=== PATIENT | female | born 1990 | race Asian ===

== ENCOUNTER 2016-11-17 17:38 | Emergency (ER) | payer SELFPAY ==
--- NOTE | 2016-11-17 22:47 | Cat Scan Report ---
FINAL REPORT PROCEDURE: CT ORBIT/EAR/FOSSA WO CON TECHNIQUE: Computerized axial tomography of the orbits was performed without contrast material. HISTORY: Orbital edema and painful EOMI COMPARISON: No prior studies are available for comparison. FINDINGS: Paranasal sinuses appear clear. Middle ears and mastoid air cells appear clear. No nasal bone fracture is seen. There is abnormal increased soft tissue density surrounding the right globe and along the right optic nerve. There is right-sided proptosis. Right lacrimal gland appears larger than the left lacrimal gland. No orbital fracture or bony destruction is seen. Mild intraconal hazy edema is seen. No fluid collections are seen. The extraocular muscles appear normal in size bilaterally. No abnormalities are seen in the left orbit. IMPRESSION: Abnormal soft tissue density surrounding the right globe and anterior aspect of the right optic nerve is present without involvement of the extraocular muscles. 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 Infectious etiology could possibly cause the appearance, also. No involvement of the left orbit is seen.
--- NOTE | 2016-11-17 22:58 | Emergency Department Report ---
Chief Complaint: Eye Problems Stated Complaint: KETURAH RT EYE Time Seen by Provider: 11/17/16 21:45 - HPI History of Present Illness: 26-year-old female presents today with a right pink eye with pain, swelling and change in vision. Patient states that she's had the pink eye for 5 days and was seen at [facility]. She was diagnosed with acute bacterial conjunctivitis and was prescribed tobramycin dexamethasone ophthalmic suspension. Patient states that the symptoms were improving but worsened 2 days ago when her eyes swelled up. Denies fever, chills, chest pain, shortness of breath, abdominal pain. Tried ibuprofen with some relief. Denies contact wear, positive for eyeglasses. - Exam Vital Signs: Vital Signs 11/17/16 11/17/16 17:56 22:18 Temperature 98.1 F 98.4 F Pulse Rate 97 H 86 Respiratory 18 18 Rate Blood Pressure 152/90 Blood Pressure 148/90 [Right] O2 Sat by Pulse 98 98 Oximetry MSE screening note: Focused history and physical exam performed. Due to findings the following was ordered: ED Disposition for MSE Condition: Stable
--- NOTE | 2016-11-17 23:05 | Emergency Department Report ---
HPI - General Chief Complaint: Eye Problems Time Seen by Provider: 11/17/16 21:45 - HPI HPI: 26-year-old female presents today with a right pink eye with pain, swelling and change in vision. Patient states that she's had the pink eye for 5 days and was seen at [facility]. She was diagnosed with acute bacterial conjunctivitis and was prescribed tobramycin dexamethasone ophthalmic suspension. Patient states that the symptoms were improving but worsened 2 days ago when her eyes swelled up. Denies fever, chills, chest pain, shortness of breath, abdominal pain. Tried ibuprofen with some relief. Denies contact wear, positive for eyeglasses. ED Past Medical Hx - Past Medical History Previous Medical History?: Yes Hx Congestive Heart Failure: No Hx Diabetes: No Hx Asthma: No Hx COPD: No Additional medical history: right eye irritation - Surgical History Past Surgical History?: Yes Additional Surgical History: x 1, Nexplinon removal - Social History Smoking Status: Never Smoker Substance Use Type: Alcohol, Non Opiate Pain, Prescribed - Medications Home Medications: Home Medications Medication Instructions Recorded Confirmed Last Taken Type Ibuprofen [Motrin] 600 mg PO Q6H PRN #30 tablet 08/14/13 11/17/16 Rx Tobramycin/Dexameth 0.3-0.1% 0 drops OP 11/17/16 11/16/16 History [Tobradex] ED Review of Systems ROS: Stated complaint: PINKEYE RT EYE Other details as noted in HPI Constitutional: denies: chills, fever, malaise Eyes: eye pain, eye discharge, vision change ENT: denies: ear pain, throat pain, congestion Respiratory: denies: cough, shortness of breath, wheezing Cardiovascular: denies: chest pain, palpitations Endocrine: no symptoms reported Gastrointestinal: nausea. denies: abdominal pain, vomiting Neurological: denies: headache, weakness Physical Exam - Physical Exam Vital Signs: Vital Signs 11/17/16 11/17/16 17:56 22:18 Temperature 98.1 F 98.4 F Pulse Rate 97 H 86 Respiratory 18 18 Rate Blood Pressure 152/90 Blood Pressure 148/90 [Right] O2 Sat by Pulse 98 98 Oximetry Physical Exam: GENERAL: The patient is well-developed and well-nourished. Patient is in NAD. HEAD: Normocephalic. Atraumatic. EYES: PERRL. Painful extraocular movement in all directions of the right eye. Positive for right eye proptosis. Positive for conjunctival injection of right eye. No drainage noted. EARS: External auditory canals and tympanic membranes clear; hearing grossly intact. NOSE: Normal nasal mucosa with no nasal discharge. THROAT: No erythema, swelling or exudates. NECK: Supple, nontender, without lymphadenopathy. CHEST/LUNGS: Clear to auscultation throughout. HEART/CARDIOVASCULAR: Regular rate and rhythm. No murmurs, rubs or gallops. ABDOMEN: Abdomen is soft, nontender. Bowel sounds normoactive. No guarding or rebound tenderness. EXTREMITIES: Peripheral pulses intact. Capillary refill less than 2 seconds. VISUAL ACUITY Right: 20/50 Left: 20/20 Bilateral: 20/15 ED Course Vital Signs 11/17/16 11/17/16 17:56 22:18 Temperature 98.1 F 98.4 F Pulse Rate 97 H 86 Respiratory 18 18 Rate Blood Pressure 152/90 Blood Pressure 148/90 [Right] O2 Sat by Pulse 98 98 Oximetry - Reevaluation(s) Reevaluation #1: 11/18/16 23:[address] Sow. CBC, BMP, blood cultures were ordered. Patient was started on vancomycin and ceftriaxone empirically. Amniotomy ophthalmology will be contacted post lab results. Reevaluation #2: 11/18/16 01:[address] Rashi Reid, [facility]. Dr. Reid recommended ER to ER transfer to [facility]. Dr. Roman from [facility] ED accepted the patient transfer. Address: [address] [place] [address]. ED Medical Decision Making - Lab Data Result diagrams: 11/17/16 23:55 11/17/16 23:55 Vital Signs 11/17/16 11/17/16 17:56 22:18 Temperature 98.1 F 98.4 F Pulse Rate 97 H 86 Respiratory 18 18 Rate Blood Pressure 152/90 Blood Pressure 148/90 [Right] O2 Sat by Pulse 98 98 Oximetry Lab Results 11/17/16 11/17/16 Range/Units 23:55 23:55 WBC 8.9 (4.5-11.0) K/mm3 RBC 4.44 (3.65-5.03) M/mm3 Hgb 11.9 (10.1-14.3) gm/dl Hct 37.5 (30.3-42.9) % MCV 85 (79-97) fl MCH 27 L (28-32) pg MCHC 32 (30-34) % RDW 13.5 (13.2-15.2) % Plt Count 309 (140-440) K/mm3 Lymph % (Auto) 37.6 H (13.4-35.0) % [place] % (Auto) 5.5 (0.0-7.3) % Eos % (Auto) 2.2 (0.0-4.3) % Baso % (Auto) 0.4 (0.0-1.8) % Lymph # 3.3 (1.2-5.4) K/mm3 [place] # 0.5 (0.0-0.8) K/mm3 Eos # 0.2 (0.0-0.4) K/mm3 Baso # 0.0 (0.0-0.1) K/mm3 Seg Neutrophils % 54.3 (40.0-70.0) % Seg Neutrophils # 4.8 (1.8-7.7) K/mm3 Sodium 137 (137-145) mmol/L Potassium 4.0 (3.6-5.0) mmol/L Chloride 100.0 (98-107) mmol/L Carbon Dioxide 27 (22-30) mmol/L Anion Gap 14 mmol/L BUN 15 (7-17) mg/dL Creatinine 0.7 (0.7-1.2) mg/dL Estimated GFR > 60 ml/min BUN/Creatinine Ratio 21.42 % Glucose 102 H (65-100) mg/dL Calcium 9.1 (8.4-10.2) mg/dL - Radiology Data Radiology results: report reviewed PROCEDURE: CT ORBIT/EAR/FOSSA WO CON TECHNIQUE: Computerized axial tomography of the orbits was performed without contrast material. HISTORY: Orbital edema and painful EOMI COMPARISON: No prior studies are available for comparison. FINDINGS: Paranasal sinuses appear clear. Middle ears and mastoid air cells appear clear. No nasal bone fracture is seen. There is abnormal increased soft tissue density surrounding the right globe and along the right optic nerve. There is right-sided proptosis. Right lacrimal gland appears larger than the left lacrimal gland. No orbital fracture or bony destruction is seen. Mild intraconal hazy edema is seen. No fluid collections are seen. The extraocular muscles appear normal in size bilaterally. No abnormalities are seen in the left orbit. IMPRESSION: Abnormal soft tissue density surrounding the right globe and anterior aspect of the right optic nerve is present without involvement of the extraocular muscles. 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 Infectious etiology could possibly cause the appearance, also. No involvement of the left orbit is seen. - Medical Decision Making 26-year-old female presents today with right periorbital edema, conjunctival injection with drainage. Patient was diagnosed with acute bacterial conjunctivitis 5 days ago and has been taking antibiotics as prescribed. Patient states her symptoms worsened [address] and lab work were ordered. Her lab work is within normal limits. CT reveals abnormal soft tissue density surrounding the right globe and anterior aspect of the right optic nerve is present without involvement of the extraocular muscles. 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 Infectious etiology could possibly cause the appearance, also. No involvement of the left orbit is seen. Consulted with Dr. Sow, consult with [facility] was recommended and patient was started on vancomycin and ceftriaxone empirically. Spoke with Dr. Reid ([facility]), who recommended ER to ER transfer. Dr. Roman from [facility] accepted patient transfer. Patient is awaiting transport at this time. Critical care attestation.: If time is entered above; I have spent that time in minutes in the direct care of this critically ill patient, excluding procedure time. ED Disposition Clinical Impression: Periorbital cellulitis Qualifiers: Laterality: right Qualified Code(s): L03.213 - Periorbital cellulitis Disposition: DC/TX ANOTHER TYPE HEALTHCARE Is pt being admited?: No Does the pt Need Aspirin: No Condition: Stable
[2016-11-17] MEDS ORDERED: VANCOMYCIN VIAL IV ONE (23:41)
[2016-11-17] MEDS ORDERED: XYLOCAINE 1% MPF 5 mL INFILTRATI ONE (23:41)
[2016-11-17] MEDS ORDERED: VANCOMYCIN PHARMACY TO DOSE IV SCH (23:45)
[2016-11-17] MEDS ORDERED: ROCEPHIN/NS 2 GM/100 ML 100 ML IV SCH (23:45)
[2016-11-17] MEDS ORDERED: VANCOMYCIN VIAL 1,750 MG in NACL 0.9% 500 ML 500 ML IV ONE (23:45)
[2016-11-18 00:07] LABS: Basophils % (Auto) 0.4 % (0.0-1.8); Eosinophils % (Auto) 2.2 % (0.0-4.3); Hematocrit 37.5 % (30.3-42.9); Hemoglobin 11.9 gm/dl (10.1-14.3); Mean Corpuscular HGB Conc 32 % (30-34); Mean Corpuscular Hemoglobin 27 pg (28-32); Mean Corpuscular Volume 85 fl (79-97); Platelet Count 309 K/mm3 (140-440); Red Blood Count 4.44 M/mm3 (3.65-5.03); Red Cell Distribution Width 13.5 % (13.2-15.2); White Blood Count 8.9 K/mm3 (4.5-11.0)
[2016-11-18 00:19] LABS: BUN/Creatinine Ratio 21.42; Blood Urea Nitrogen 15 mg/dL (7-17); Calcium 9.1 mg/dL (8.4-10.2); Carbon Dioxide 27 mmol/L (22-30); Glucose 102 mg/dL (65-100); Sodium 137 mmol/L (137-145)
[2016-11-18 00:31] LABS: Anion Gap 14 mmol/L
[2016-11-18 02:00] VITALS: BP 128/87
== END 2016-11-18 02:15 | disposition other institution (70) ==
LOC: ED 17:38
DX: L03.213 Periorbital cellulitis (principal); R11.0 Nausea
CPT/HCPCS: 36415; 70480; 80048; 85025; 87040; 96365; 96367; 96376; 99285; J0696; J3370; J7040

== ENCOUNTER 2019-02-18 15:14 | Emergency (ER) | payer MEDICAID, OTHER ==
[2019-02-18 15:21] VITALS: BP 130/81
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
== END 2019-02-18 16:40 | disposition home or self-care (01) ==
LOC: ED 15:14
DX: S39.012A Strain of muscle, fascia and tendon of lower back, initial encounter (principal); V49.9XXA Car occupant (driver) (passenger) injured in unspecified traffic accident, initial encounter; Y93.89 Activity, other specified; Y92.410 Unspecified street and highway as the place of occurrence of the external cause; Y99.8 Other external cause status
CPT/HCPCS: 99282

== ENCOUNTER 2022-02-03 13:56 | Emergency (ER) | payer SELFPAY ==
[2022-02-03 16:15] LABS: Hematocrit 37.1 % (30.3-42.9); Hemoglobin 11.7 gm/dl (10.1-14.3); Mean Corpuscular HGB Conc 31 % (30-34); Mean Corpuscular Volume 85 fl (79-97); Platelet Count 279 K/mm3 (140-440); Red Blood Count 4.37 M/mm3 (3.65-5.03); Red Cell Distribution Width 13.8 % (13.2-15.2)
[2022-02-03 16:22] LABS: Alanine Aminotransferase 19 units/L (7-56); Albumin 3.9 g/dL (3.9-5); Blood Urea Nitrogen 12 mg/dL (7-17); Calcium 9.8 mg/dL (8.4-10.2); Hemolysis Index 3
[2022-02-03 16:30] LABS: BUN/Creatinine Ratio 17
[2022-02-03 16:42] LABS: Bilirubin,Urine NEG (Negative); Blood,Urine NEG (Negative); Color,Urine Amber (Yellow); Mucus,Urine 3+ /HPF
[2022-02-03 16:51] LABS: Protein,Urine >500 mg/dL (Negative)
[2022-02-03 17:24] LABS: Band Neutrophils # (Manual) 0.5 K/mm3; Basophils % (Manual) 0 % (0.0-1.8); Total Cells Counted 100
[2022-02-03 17:25] LABS: Anisocytosis 1+
[2022-02-03 17:26] LABS: Platelet Estimate Consistent w Auto; Toxic Granulation 1+; Toxic Vacuolation 1+
[2022-02-03 20:00] VITALS: BP 131/87
[2022-02-03] MEDS ORDERED: MORPHINE 4 MG/1 ML INJ IV STA (20:39)
[2022-02-03] MEDS ORDERED: SODIUM CHLORIDE 0.9% 1000 ML 1,000 ML IV ONE (20:39)
[2022-02-03] MEDS ORDERED: ONDANSETRON 4 MG/2 ML INJ IV STA (20:39)
[2022-02-03] MEDS ORDERED: cefTRIAXone/NS 1 GM/50 ML 1 GM/50 ML BAG IV ONE (21:53)
--- NOTE | 2022-02-03 22:41 | Cat Scan Report ---
CT ABDOMEN AND PELVIS WITH CONTRAST INDICATION / CLINICAL INFORMATION: Lower ABD Pain. TECHNIQUE: Axial CT images were obtained through the abdomen and pelvis after 100 cc Omnipaque [address] scans at this location are performed using CT dose reduction for ALARA by means of automated exposure control. COMPARISON: None available. FINDINGS: LOWER CHEST: No significant abnormality of the imaged chest. LIVER: No significant abnormality. GALLBLADDER: Layering sludge within the gallbladder. BILE DUCTS: No significant abnormality. SPLEEN: No significant abnormality. PANCREAS: No significant abnormality. ADRENALS: No significant abnormality. RIGHT KIDNEY / URETER: No significant abnormality. LEFT KIDNEY / URETER: No significant abnormality. STOMACH / DUODENUM / SMALL BOWEL: No significant abnormality. COLON: No significant abnormality. APPENDIX: No significant abnormality. PERITONEUM: Small to moderate amount of free fluid within the right pelvis. LYMPH NODES: No significant adenopathy. AORTA / ARTERIES: No significant abnormality. IVC / VEINS: No significant abnormality. URINARY BLADDER: Mild uniform wall thickening of the urinary bladder. REPRODUCTIVE ORGANS: The right ovary and adnexa demonstrate increased inflammatory stranding with hyp eremic flow and increased opacification of the right gonadal vein present. Small right adnexal fluid collection present. The uterus demonstrates a peripherally calcified uterine fibroid measuring up to 2.8 cm. Left ovary i s unremarkable. ADDITIONAL ABDOMINAL/PELVIC FINDINGS: None. SKELETAL SYSTEM: No significant abnormality. IMPRESSION: 1. Fluid collection in region of right adnexa right ovary with more organized rounded focus of fluid that may represent ovarian or adnexal cyst. A moderate inflammatory process is suggested. Small tubo- ovarian abscess not excluded. Additional differential considerations for the appearance could include salpingitis, possibly ruptured hemorrhagic cyst. Signer Name: Siddharth Ribera II, MD Signed: 02/03/2022 10:37 PM Workstation Name: [id number]
--- NOTE | 2022-02-04 00:45 | Ultrasound Report ---
ULTRASOUND PELVIS INDICATION / CLINICAL INFORMATION: PAIN. TECHNIQUE: Transabdominal. Duplex Color Doppler used: Yes. COMPARISON: CT abdomen and pelvis 02/03/2022 FINDINGS: UTERUS: Uterus measures 9.3 x 3.8 x 4.3 cm. No focal abnormality of uterine echotexture is demonstrat ed. An atrial stripe measures up to 6 mm. Calcified uterine fibroid as demonstrated on recent CT. RIGHT ADNEXA: The right ovary measures 2.7 x 2.0 x 2.4 cm. The cystic region/focal fluid collection d emonstrated on recent CT not well visualized on ultrasound.. Color flow is present within the right o vary. Spectral Doppler evaluation not performed. The free fluid demonstrated on CT is not well demons trated on ultrasound. LEFT ADNEXA: Left ovary is not identified. URINARY BLADDER: No significant abnormality. ADDITIONAL FINDINGS: None. IMPRESSION: 1. The imaged right ovary is grossly normal on ultrasound. The small cystic region/focal fluid collec tion as well as suggested adjacent paraovarian fluid demonstrated on CT not well visualized on ultras ound. Signer Name: Siddharth Ribera II, MD Signed: 02/04/2022 12:40 AM Workstation Name: [id number]
[2022-02-04] MEDS ORDERED: KETOROLAC 30 MG/1 ML INJ IM ONE (02:24)
--- NOTE | 2022-02-04 03:57 | Emergency Department Report ---
ED Abdominal Pain HPI - General Chief Complaint: Abdominal Pain Stated Complaint: ABD PAIN Time Seen by Provider: 02/03/22 20:28 Source: patient Mode of arrival: Ambulatory Limitations: No Limitations - History of Present Illness Initial Comments: Patient is a A1 31-year-old -[place] female who is 3 months presents to the ED with complaint of acute onset persistent diffuse low abdominal pain with nausea and vomiting, body aches and pains, headache, chills and lack of appetite for the last 1 week. Patient states that the pain is worse also with sexual intercourse. Patient denies dizziness, syncope, chest pain, shortness of breath, diarrhea, dysuria, urinary frequency and urgency, vaginal discharge, low back pain, headache or sore throat. MD Complaint: abdominal pain (Diffuse low abdominal pain), other (Nausea, body aches and pains) -: Sudden, week(s) (1) Location: LLQ, RLQ, suprapubic Radiation: LLQ, RLQ, suprapubic Migration to: no migration Severity scale (0 -10): 8 Quality: cramping, aching, sharp Consistency: constant Improves With: nothing Worsens With: bowel movement, movement, other (Sexual intercourse) Context: recent surgery/procedure ( delivery 3 months ago) Associated Symptoms: denies other symptoms, nausea, vomiting, anorexia. denies: diarrhea, fever, chills, constipation, dysuria, hematemesis, hematochezia, melena, hematuria, syncope - Related Data Home Medications Medication Instructions Recorded Confirmed Last Taken Tobramycin/Dexameth 0.3-0.1% 0 drops OP 11/17/16 11/16/16 [Tobradex] Previous Rx's Medication Instructions Recorded Last Taken Type Ibuprofen [Motrin] 600 mg PO Q6H PRN #30 tablet 08/14/13 11/17/16 Rx Cyclobenzaprine [Flexeril] 10 mg PO TID PRN #20 tablet 02/18/19 Unknown Rx Ibuprofen [Ibuprofen 800] 800 mg PO QID #10 tablet 02/18/19 Unknown Rx Doxycycline Hyclate 100 mg PO Q12H #28 cap 02/04/22 Unknown Rx Fluconazole [Diflucan TAB] 200 mg PO QDAY #2 tablet 02/04/22 Unknown Rx Ibuprofen [Motrin] 800 mg PO Q8HR PRN #30 tablet 02/04/22 Unknown Rx Ondansetron [Zofran Odt] 4 mg PO Q6HR PRN #20 tab.rapdis 02/04/22 Unknown Rx metroNIDAZOLE [Flagyl] 500 mg PO Q12HR #20 tab 02/04/22 Unknown Rx traMADoL [Ultram] 50 mg PO Q6HR PRN #10 tablet 02/04/22 Unknown Rx Allergies Allergy/AdvReac Type Severity Reaction Status Date / Time No Known Allergies Allergy Verified 02/18/19 15:16 ED Review of Systems ROS: Stated complaint: ABD PAIN Other details as noted in HPI Constitutional: chills, fever, malaise Eyes: denies: eye pain, eye discharge, vision change ENT: denies: ear pain, throat pain Respiratory: denies: cough, shortness of breath, wheezing Cardiovascular: denies: chest pain, palpitations Endocrine: no symptoms reported Gastrointestinal: abdominal pain (Diffuse low abdominal pain), nausea, vomiting. denies: diarrhea Genitourinary: denies: urgency, dysuria, frequency, hematuria, discharge, abnormal menses, dyspareunia Musculoskeletal: arthralgia, myalgia. denies: back pain, joint swelling Skin: denies: rash, lesions Neurological: headache. denies: weakness, paresthesias Psychiatric: denies: anxiety, depression Hematological/Lymphatic: denies: easy bleeding, easy bruising ED Past Medical Hx - Past Medical History Hx Congestive Heart Failure: No Hx Diabetes: No Hx Asthma: No Hx COPD: No Additional medical history: right eye irritation - Surgical History Past Surgical History?: Yes Additional Surgical History: x 3, Nexplinon removal - Social History Smoking Status: Never Smoker Substance Use Type: None - Medications Home Medications: Home Medications Medication Instructions Recorded Confirmed Last Taken Type Ibuprofen [Motrin] 600 mg PO Q6H PRN #30 tablet 08/14/13 11/17/16 Rx Tobramycin/Dexameth 0.3-0.1% 0 drops OP 11/17/16 11/16/16 History [Tobradex] Cyclobenzaprine [Flexeril] 10 mg PO TID PRN #20 tablet 02/18/19 Unknown Rx Ibuprofen [Ibuprofen 800] 800 mg PO QID #10 tablet 02/18/19 Unknown Rx Doxycycline Hyclate 100 mg PO Q12H #28 cap 02/04/22 Unknown Rx Fluconazole [Diflucan TAB] 200 mg PO QDAY #2 tablet 02/04/22 Unknown Rx Ibuprofen [Motrin] 800 mg PO Q8HR PRN #30 tablet 02/04/22 Unknown Rx Ondansetron [Zofran Odt] 4 mg PO Q6HR PRN #20 tab.rapdis 02/04/22 Unknown Rx metroNIDAZOLE [Flagyl] 500 mg PO Q12HR #20 tab 02/04/22 Unknown Rx traMADoL [Ultram] 50 mg PO Q6HR PRN #10 tablet 02/04/22 Unknown Rx ED Physical Exam - General Limitations: No Limitations General appearance: alert, in no apparent distress - Head Head exam: Present: atraumatic, normocephalic, normal inspection - Eye Eye exam: Present: normal appearance, PERRL, EOMI Pupils: Present: normal accommodation - ENT ENT exam: Present: normal exam, normal orophraynx, mucous membranes moist, TM's normal bilaterally, normal external ear exam - Neck Neck exam: Present: normal inspection, full ROM. Absent: tenderness - Respiratory Respiratory exam: Present: normal lung sounds bilaterally. Absent: respiratory distress, wheezes, rales, chest wall tenderness, accessory muscle use, decreased breath sounds - Cardiovascular Cardiovascular Exam: Present: normal rhythm, tachycardia, normal heart sounds. Absent: systolic murmur, diastolic murmur, rubs, gallop - GI/Abdominal GI/Abdominal exam: Present: soft, tenderness (Palpable diffuse lower abdominal tenderness), normal bowel sounds. Absent: guarding, rebound, hyperactive bowel sounds, hypoactive bowel sounds, organomegaly, mass - External exam: Present: normal external exam Speculum exam: Present: vaginal discharge, cervical discharge, vaginal bleeding Bi-manual exam: Present: cervical motion tendernes, adnexal tenderness, uterine tenderness, other (Female RN inspector machine cut glass Ms. Guerra present) - Extremities Exam Extremities exam: Present: normal inspection, full ROM, normal capillary refill. Absent: tenderness - Back Exam Back exam: Present: normal inspection, full ROM. Absent: tenderness, CVA tenderness (L), muscle spasm, paraspinal tenderness, vertebral tenderness - Neurological Exam Neurological exam: Present: alert, oriented X3, CN II-XII intact, normal gait, reflexes normal - Psychiatric Psychiatric exam: Present: normal affect, normal mood - Skin Skin exam: Present: warm, dry, intact, normal color. Absent: rash ED Course Vital Signs 02/03/22 02/03/22 02/03/22 15:01 20:00 20:49 Temperature 98.6 F 98.1 F Pulse Rate 111 H 115 H Respiratory 20 16 14 Rate Blood Pressure 141/92 Blood Pressure 131/87 [Right] O2 Sat by Pulse 98 98 Oximetry ED Medical Decision Making - Lab Data Result diagrams: 02/03/22 15:56 02/03/22 15:56 - Radiology Data Radiology results: report reviewed, image reviewed [facility] [address] [place] [address] Cat Scan Report Signed Patient: CHELE SIMONS MR#: [id number] : 1990 Acct:[id number] Age/Sex: 31 / F ADM Date: 02/03/22 Loc: ED Attending Dr: Ordering Physician: CLAUDIA BA Date of Service: 02/03/22 Procedure(s): CT abdomen pelvis w con Accession Number(s): [id number] cc: CLAUDIA BA CT ABDOMEN AND PELVIS WITH CONTRAST INDICATION / CLINICAL INFORMATION: Lower ABD Pain. TECHNIQUE: Axial CT images were obtained through the abdomen and pelvis after 100 cc Omnipaque [address] scans at this location are performed using CT dose redu ction for [facility] by means of automated exposure control. COMPARISON: None available. FINDINGS: LOWER CHEST: No significant abnormality of the imaged chest. LIVER: No significant abnormality. GALLBLADDER: Layering sludge within the gallbladder. BILE DUCTS: No significant abnormality. SPLEEN: No significant abnormality. PANCREAS: No significant abnormality. ADRENALS: No significant abnormality. RIGHT KIDNEY / URETER: No significant abnormality. LEFT KIDNEY / URETER: No significant abnormality. STOMACH / DUODENUM / SMALL BOWEL: No significant abnormality. COLON: No significant abnormality. APPENDIX: No significant abnormality. PERITONEUM: Small to moderate amount of free fluid within the right pelvis. LYMPH NODES: No significant adenopathy. AORTA / ARTERIES: No significant abnormality. IVC / VEINS: No significant abnormality. URINARY BLADDER: Mild uniform wall thickening of the urinary bladder. REPRODUCTIVE ORGANS: The right ovary and adnexa demonstrate increased inflammatory stranding with hyperemic flow and increased opacification of the right gonadal vein present. Small right adnexal fluid collection present. The uterus demonstrates a peripherally calcified uterine fibroid measuring up to 2.8 cm. Left ovary is unremarkable. ADDITIONAL ABDOMINAL/PELVIC FINDINGS: None. SKELETAL SYSTEM: No significant abnormality. IMPRESSION: 1. Fluid collection in region of right adnexa right ovary with more organized rounded focus of fluid that may represent ovarian or adnexal cyst. A moderate inflammatory process is suggested. Small tubo-ovarian abscess not excluded. Additional differential considerations for the appearance could include salpingitis, possibly ruptured hemorrhagic cyst. Signer Name: Angelo Mathias II, MD Signed: 02/03/2022 10:37 PM Workstation Name: [id number] Transcribed By: ISIDORO Dictated By: ANGELO MATHIAS II, MD Electronically Authenticated By: ANGELO MATHIAS II, MD Signed Date/Time: 02/03/222236 DD/ 29 TD/TT: [facility] [address] [place] [address] Ultrasound Report Signed Patient: CHELE SIMONS MR#: [id number] : 1990 Acct:[id number] Age/Sex: 31 / F ADM Date: 02/03/22 Loc: ED Attending Dr: Ordering Physician: CLAUDIA VIVEROS Date of Service: 02/03/22 Procedure(s): US pelvic complete Accession Number(s): [id number] cc: CLAUDIA VIVEROS ULTRASOUND PELVIS INDICATION / CLINICAL INFORMATION: PAIN. TECHNIQUE: Transabdominal. Duplex Color Doppler used: Yes. COMPARISON: CT abdomen and pelvis 02/03/2022 FINDINGS: UTERUS: Uterus measures 9.3 x 3.8 x 4.3 cm. No focal abnormality of uterine echotexture is demonstrated. An atrial stripe measures up to 6 mm. Calcified uterine fibroid as demonstrated on recent CT. RIGHT ADNEXA: The right ovary measures 2.7 x 2.0 x 2.4 cm. The cystic region/focal fluid collection demonstrated on recent CT not well visualized on ultrasound.. Color flow is present within the right ovary. Spectral Doppler evaluation not performed. The free fluid demonstrated on CT is not well demonstrated on ultrasound. LEFT ADNEXA: Left ovary is not identified. URINARY BLADDER: No significant abnormality. ADDITIONAL FINDINGS: None. IMPRESSION: 1. The imaged right ovary is grossly normal on ultrasound. The small cystic region/focal fluid collection as well as suggested adjacent paraovarian fluid demonstrated on CT not well visualized on ultrasound. Signer Name: Angelo Mathias II, MD Signed: 02/04/2022 12:40 AM Workstation Name: [id number] Transcribed By: ISIDORO Dictated By: ANGELO MATHIAS II, MD Electronically Authenticated By: ANGELO MATHIAS II, MD Signed Date/Time: 02/04/2239 DD/ 003 TD/TT: Print Cancel - Medical Decision Making This is a A1 31-year-old -[place] female who is 3 months presents to the ED with complaint of acute onset persistent diffuse low abdominal pain with nausea and vomiting, body aches and pains, headache, chills and lack of appetite for the last 1 week. Patient states that the pain is worse also with sexual intercourse. In the ED, patient is alert and oriented x3 and is not in any distress but tachycardic, anxious and appears to be in pain in triage. Patient was treated in the ED for pain, also received normal saline 1 L IV bolus x1. Patient was also treated with antiemetics. Lab test results were reviewed and are all nonactionable except for leukocytosis of 23,700 and significant urinary tract infection in urinalysis. The wet prep test was positive for Gardnerella vaginalis. The abdomen pelvis CT scan with contrast showed Fluid collection in region of right adnexa right ovary with more organized rounded focus of fluid that may represent ovarian or adnexal cyst. A moderate inflammatory process is suggested. Small tubo-ovarian abscess not excluded. Additional differential considerations for the appearance could include salpingitis, possibly ruptured hemorrhagic cyst. The pelvic ultrasound showed right ovary that is grossly normal on ultrasound. The small cystic region/focal fluid collection as well as suggested adjacent paraovarian fluid demonstrated on CT not well visualized on ultrasound. The pelvic exam was exquisitely positive for significant cervical motion tenderness consistent with acute pelvic inflammatory disease. Patient also received Rocephin 1 g IV in the ED, azithromycin 1 g p.o. x1 and pain medications. On reevaluation, patient's pain is well controlled medication. Patient will discharge home on antibiotics and pain medications and advised to follow-up with her [facility] physician in 5 to 7 days for reevaluation or return to the ED immediately if symptoms get worse. - Differential Diagnosis UTI; Appendicitis; Ovarian cyst; ; kidney stones; PID; TOA Critical care attestation.: If time is entered above; I have spent that time in minutes in the direct care of this critically ill patient, excluding procedure time. ED Disposition Clinical Impression: Acute bilateral lower abdominal pain, Acute pelvic inflammatory disease (PID), Acute urinary tract infection, Nausea and vomiting in adult patient Disposition: 01 HOME / SELF CARE / HOMELESS Is pt being admited?: No Does the pt Need Aspirin: No Condition: Stable Instructions: Abdominal Pain (ED), Abdominal Pain, Adult, [id number], Nausea and Vomiting, Adult, [id number], Urinary Tract Infection, Adult, [id number], Pelvic Inflammatory Disease, [id number] Additional Instructions: Take medication with food, drink plenty of fluids and follow-up with your [facility] physician in 7 to 10 days for reevaluation. Return to the ED immediately if symptoms get worse. Prescriptions: Fluconazole [Diflucan TAB] 200 mg PO QDAY #2 tablet Doxycycline Hyclate 100 mg PO Q12H #28 cap metroNIDAZOLE [Flagyl] 500 mg PO Q12HR #20 tab Ibuprofen [Motrin] 800 mg PO Q8HR PRN #30 tablet PRN Reason: Pain , Severe (7-10) traMADoL [Ultram] 50 mg PO Q6HR PRN #10 tablet PRN Reason: Pain Ondansetron [Zofran Odt] 4 mg PO Q6HR PRN #20 tab.rapdis PRN Reason: Nausea Referrals: NWJUANA MENDES MD [Staff Physician] - 7-10 days DANGELO CEE MD [Primary Care Provider] - 7-10 days Time of Disposition: 04:05 Print Language: PALESTINIAN
[2022-02-04] MEDS ORDERED: AZITHROMYCIN 250 MG TAB PO ONE (04:06)
== END 2022-02-04 04:46 | disposition home or self-care (01) ==
LOC: ED 13:56
DX: N39.0 Urinary tract infection, site not specified (principal); N73.9 Female pelvic inflammatory disease, unspecified; R51.9 Headache, unspecified; Z98.890 Other specified postprocedural states
CPT/HCPCS: 36415; 74177; 76856; 80053; 81001; 82140; 83690; 85007; 85025; 87040; 87086; 87210; 87591; 96365; 96372; 96375; 99284; J0696; J1885; J2270; J2405; J7030; Q9967; Q0162